=== PATIENT | male | born 1975 | race African-American/Black ===

== ENCOUNTER 2018-07-18 20:09 | Emergency (ER) | payer MEDICAID, OTHER ==
[~2018-07-18] VITALS: Ht 170.2 cm; Wt 68.0 kg
[2018-07-18 20:14] VITALS: BP 111/86
== END 2018-07-19 00:52 | disposition left against medical advice (07) ==
LOC: ER 23:15
DX: Z53.21 Procedure and treatment not carried out due to patient leaving prior to being seen by health care provider (principal)